=== PATIENT | female | born 1995 | race African-American/Black ===

== ENCOUNTER 2016-05-03 22:58 | Emergency (ER) | payer OTHER ==
[~2016-05-03] VITALS: Ht 172.7 cm; Wt 113.4 kg
[~2016-05-03 22:58] MED LIST: AUGMENTIN 875875 MG PO
[2016-05-03 23:39] LABS: URINE BILIRUBIN NEGATIVE (Negative); URINE BLOOD 2+ (Negative); URINE COLOR YELLOW; URINE GLUCOSE-RANDOM* NEGATIVE (Negative); URINE KETONES NEGATIVE (Negative); URINE NITRITE NEGATIVE (Negative); URINE PROTEIN (DIPSTICK) NEGATIVE (Negative); URINE SPECIFIC GRAVITY <= 1.005 (1.003-1.035); URINE UROBILINOGEN 0.2 E.U./dl (0.2-1.0)
[2016-05-03 23:40] LABS: ABSOLUTE NEUTROPHILS 4.3 thou/uL (1.4-8.2); BASOPHILS 0.8 % (0.0-2.0); EOSINOPHILS 2.6 % (0.0-3.0); HEMATOCRIT 35.7 % (37.0-47.0); HEMOGLOBIN 11.3 gm/dL (12.0-15.0); LYMPHOCYTES 49.2 % (24.0-44.0); MANUAL DIFF NO; MCHC 31.6 g/dL (28.0-37.0); MONOCYTES 3.7 % (1.0-8.0); PLATELET COUNT 333 thou/uL (150-400); POLYS 43.7 % (36.0-66.0); RBC 4.69 mil/uL (4.20-5.00); RDW 13.4 % (10.5-14.5); WBC 9.8 thou/uL (4.0-11.0)
[2016-05-03 23:48] LABS: CASTS None Seen /LPF (None Seen); CRYSTALS None Seen /LPF (None Seen); SQUAMOUS 0-3 Few /LPF (0-3)
[2016-05-03 23:49] LABS: BACTERIA None Seen /HPF (None Seen); URINE WBC None Seen /HPF (0-5)
[2016-05-03 23:56] LABS: CALCIUM 9.2 mg/dL (8.5-10.1); CREATININE 0.9 mg/dL (0.6-1.3); POTASSIUM 3.3 mmol/L (3.5-5.1)
[2016-05-03 23:59] LABS: AMP/METHAMP Negative (Negative); BARBITURATES Negative (Negative); BENZODIAZEPINES Negative (Negative); COCAINE Negative (Negative); METHADONE Negative (Negative); OPIATES Negative (Negative); PCP Negative (Negative); THC Negative (Negative)
[2016-05-04 00:10] VITALS: BP 139/70
== END 2016-05-04 00:29 | disposition home or self-care (01) ==
LOC: ER 22:58
PROVIDERS: Nurse Practitioner
DX: F41.9 Anxiety disorder, unspecified (principal); F10.129 Alcohol abuse with intoxication, unspecified

== ENCOUNTER 2019-03-02 22:01 | Emergency (ER) | payer BC ==
[~2019-03-02] VITALS: Ht 160 cm; Wt 85.3 kg
[2019-03-02 22:03] VITALS: BP 143/85
[2019-03-02] MEDS ORDERED: BACTRIM DS TAB1 EACH PO (22:19)
== END 2019-03-02 22:56 | disposition home or self-care (01) ==
LOC: ER 22:01
DX: L03.115 Cellulitis of right lower limb (principal)